=== PATIENT | male | born 1970 | race Caucasian/White ===

== ENCOUNTER 2019-10-09 17:55 | Emergency (ER) | payer MEDICARE ==
[2019-10-09 18:10] VITALS: BP 115/75
--- NOTE | 2019-10-09 18:18 | UC ---
Respiratory Complaint HPI - HPI Summary HPI Summary: 49 yo male with cough > 1 week no fever/chills no n/v/d no sinus pain or pressure no sore throat - History of Current Complaint Chief Complaint: UCRespiratory Stated Complaint: COUGH/CONGESTION Time Seen by Provider: 10/09/19 18:03 Hx Obtained From: Patient Onset/Duration: Gradual Onset, Lasting Days Timing: Constant Severity Initially: Mild Severity Currently: Moderate Pain Intensity: 0 Pain Scale Used: 0-10 Numeric Character: Cough: Productive Aggravating Factors: Nothing Alleviating Factors: Nothing Associated Signs And Symptoms: Positive: Dyspnea - Allergies/Home Medications Allergies/Adverse Reactions: Allergies Allergy/AdvReac Type Severity Reaction Status Date / Time oxycodone Allergy See Comment Verified 10/09/19 18:05 Penicillins Allergy Rash Verified 10/09/19 18:05 Home Medications: Home Medications Blood Pressure Med 1 tab BID 10/09/19 [History Confirmed 10/09/19] Venlafaxine EXT RELEASE CAP* [Effexor Xr CAP*] 75 mg DAILY 10/09/19 [History Confirmed 10/09/19] traZODone TAB* [Desyrel TAB*] 50 mg PO BEDTIME 10/09/19 [History Confirmed 10/09] PMH/Surg Hx/FS Hx/Imm Hx Previously Healthy: Yes Respiratory History: Bronchitis Psychological History: Post Traumatic Stress Disorder Other History Of: Negative For: HIV, Hepatitis B, Hepatitis C, Anticoagulant Therapy - Surgical History Surgical History: Yes Surgery Procedure, Year, and Place: left inguinal hernia. right shoulder. right heel repair - Family History Known Family History: Positive: Hypertension - Social History Alcohol Use: None Substance Use Type: None Smoking Status (MU): Never Smoked Tobacco - Immunization History Most Recent Influenza Vaccination: Fall 2014 Review of Systems All Other Systems Reviewed And Are Negative: Yes Constitutional: Positive: Negative Skin: Positive: Negative Eyes: Positive: Negative ENT: Positive: Negative Respiratory: Positive: Cough Cardiovascular: Positive: Negative Gastrointestinal: Positive: Negative Genitourinary: Positive: Negative Neurovascular: Positive: Negative Musculoskeletal: Positive: Myalgia Neurological: Positive: Negative Psychological: Positive: Negative Physical Exam Triage Information Reviewed: Yes Appearance: Well-Appearing, No Pain Distress, Well-Nourished Vital Signs: Initial Vital Signs Temp 99.2 F 10/09/19 18:07 Pulse 76 10/09/19 18:07 Resp 18 10/09/19 18:07 BP 115/75 10/09/19 18:07 Pulse Ox 97 10/09/19 18:07 Vital Signs Reviewed: Yes Eye Exam: Normal Eyes: Positive: Conjunctiva Clear ENT: Positive: Normal ENT inspection Dental: Negative: Abscess @ Neck: Positive: Supple, Nontender, No Lymphadenopathy Respiratory: Positive: Lungs clear, Normal breath sounds, No respiratory distress, No accessory muscle use Cardiovascular: Positive: RRR, No Murmur Musculoskeletal: Positive: ROM Intact, No Edema Neurological: Positive: Alert Psychological Exam: Normal Psychological: Positive: Decreased Age Appropriate Behavior Diagnostics - Radiology No standard instances Radiology Interpretation Completed By: ED Physician Summary of Radiographic Findings: no infiltrate /stigmata of COPD Respiratory Course/Dx - Differential Dx/Diagnosis Provider Diagnosis: COPD exacerbation Discharge ED - Sign-Out/Discharge Documenting (check all that apply): Patient Departure All imaging exams completed and their final reports reviewed: No - Discharge Plan Condition: Stable Disposition: HOME Prescriptions: predniSONE TAB* [Deltasone 20 MG TAB*] 40 mg PO DAILY #8 tab Patient Education Materials: COPD (Chronic Obstructive Pulmonary Disease) (ED) Referrals: [facility] [place] [facility] [place]] Additional Instructions: based on your Chest XR you may have COPD (despite being a non smoker) the next time you are seen at the [facility] I would ask about getting PULMONARY FUNCTION TESTS recheck here in 4-5 days if not better recheck sooner for fever or worsening symptoms - Billing Disposition and Condition Condition: STABLE Disposition: Home
[2019-10-09] MEDS ORDERED: predniSONE TAB* 20 MG PO ONE (18:42)
[2019-10-09] MEDS ORDERED: Albuterol HFA INHALER* 8 gm MDI INH ONE (18:42)
--- NOTE | 2019-10-10 17:15 | UC ---
- Progress Note Progress Note: Final radiologist reading of chest x-ray from October 09, 2019 comes back as no acute disease process. Provider interpretation same date is no infiltrate therefore there is no discrepancy. Course/Dx - Diagnoses Provider Diagnoses: COPD exacerbation Discharge ED - Sign-Out/Discharge Documenting (check all that apply): Patient Departure All imaging exams completed and their final reports reviewed: Yes - Discharge Plan Condition: Stable Disposition: HOME Prescriptions: predniSONE TAB* [Deltasone 20 MG TAB*] 40 mg PO DAILY #8 tab Patient Education Materials: COPD (Chronic Obstructive Pulmonary Disease) (ED) Referrals: [facility] [place] [facility] [Outside] Additional Instructions: based on your Chest XR you may have COPD (despite being a non smoker) [facility] I would ask about getting PULMONARY FUNCTION TESTS recheck here in 4-5 days if not better recheck sooner for fever or worsening symptoms - Billing Disposition and Condition Condition: STABLE Disposition: Home
== END 2019-10-09 19:02 | disposition home or self-care (01) ==
LOC: UCCORT 17:55
DX: J44.1 Chronic obstructive pulmonary disease with (acute) exacerbation (principal); M79.10 Myalgia, unspecified site; Z88.0 Allergy status to penicillin; Z88.5 Allergy status to narcotic agent
CPT/HCPCS: 71046; 99202; A9270-GY; G0463; J7512

== ENCOUNTER 2019-10-13 11:53 | Emergency (ER) | payer MEDICARE ==
[2019-10-13 13:32] VITALS: BP 140/90
--- NOTE | 2019-10-13 13:56 | UC ---
Respiratory Complaint HPI - HPI Summary HPI Summary: 49 yo male with the onset of cough 2 weeks ago some relief with MDI and prednisone now cough is more productive no fever/chils no vomiting or diarrhea no CP or sob tick bite three weeks ago engorged - History of Current Complaint Chief Complaint: UCGeneralIllness Stated Complaint: CHEST CONGESTION HEADACHE EYES RECHECK Time Seen by Provider: 10/13/19 12:49 Hx Obtained From: Patient Onset/Duration: Gradual Onset Timing: Constant Severity Initially: Mild Severity Currently: Moderate Pain Intensity: 0 Pain Scale Used: 0-10 Numeric Character: Cough: Productive Aggravating Factors: Exertion, Deep Breaths Alleviating Factors: Nothing Associated Signs And Symptoms: Positive: Wheezing. Negative: Dyspnea, Fever, Chills, Pleuritic Chest Pain, Hemoptysis, Dizziness, Calf Pain, Calf Swelling, Edema, URI, Nasal Congestion - Allergies/Home Medications Allergies/Adverse Reactions: Allergies Allergy/AdvReac Type Severity Reaction Status Date / Time Penicillins Allergy Rash Verified 10/13/19 12:19 oxycodone AdvReac See Comment Verified 10/13/19 12:19 Home Medications: Home Medications Albuterol HFA INHALER* [Ventolin HFA Inhaler*] 1 - 2 puff INH Q4H PRN 10/13/19 [ History Confirmed 10/13/19] PMH/Surg Hx/FS Hx/Imm Hx Previously Healthy: Yes Cardiovascular History: Hypertension Other History Of: Negative For: HIV, Hepatitis B, Hepatitis C, Anticoagulant Therapy - Surgical History Surgical History: Yes Surgery Procedure, Year, and Place: left inguinal hernia. right shoulder. right heel repair - Family History Known Family History: Positive: Hypertension - Social History Alcohol Use: None Substance Use Type: None Smoking Status (MU): Never Smoked Tobacco - Immunization History Most Recent Influenza Vaccination: Fall 2014 Review of Systems All Other Systems Reviewed And Are Negative: Yes Constitutional: Positive: Fatigue Skin: Positive: Negative Eyes: Positive: Negative ENT: Positive: Nasal Discharge, Sinus Congestion, Sinus Pain/Tenderness Respiratory: Positive: Cough Cardiovascular: Positive: Negative Gastrointestinal: Positive: Negative Genitourinary: Positive: Negative Motor: Positive: Negative Neurovascular: Positive: Negative Musculoskeletal: Positive: Negative Neurological: Positive: Negative Psychological: Positive: Negative Physical Exam Triage Information Reviewed: Yes Appearance: Well-Appearing, No Pain Distress, Well-Nourished Vital Signs: Initial Vital Signs Temp 97.8 F 10/13/19 12:16 Pulse 58 10/13/19 12:16 Resp 16 10/13/19 12:16 BP 124/85 10/13/19 12:16 Pulse Ox 100 10/13/19 12:16 Vital Signs Reviewed: Yes Eyes: Positive: Conjunctiva Clear ENT: Positive: Hearing grossly normal. Negative: Nasal congestion, Nasal drainage, Trismus, Muffled voice, Hoarse voice Neck: Positive: Supple, Nontender, No Lymphadenopathy Respiratory: Positive: Normal breath sounds, No respiratory distress, Wheezing Cardiovascular: Positive: RRR, No Murmur Abdominal Exam: Normal Bowel Sounds: Positive: Present Musculoskeletal: Positive: ROM Intact, No Edema Neurological: Positive: Alert Psychological Exam: Normal Skin Exam: Normal Respiratory Course/Dx - Differential Dx/Diagnosis Provider Diagnosis: Bronchitis Discharge ED - Sign-Out/Discharge Documenting (check all that apply): Patient Departure All imaging exams completed and their final reports reviewed: No Studies - Discharge Plan Condition: Stable Disposition: HOME Prescriptions: DOXYcycline CAP(*) [DOXYcycline 100MG CAP(*)] 100 mg PO BID #20 cap Patient Education Materials: Acute Bronchitis (ED) Referrals: No Primary Care Phys,NOPCP [Primary Care Provider] - Additional Instructions: use inhaler recheck for new or worsening symptoms blood work pending [facility] next week if not better - Billing Disposition and Condition Condition: STABLE Disposition: Home
[2019-10-13 19:39] LABS: ABS Lymphocytes 1.3 10^3/ul (1.0-4.8); ABS Monocytes 0.4 10^3/ul (0-0.8); ABS Neutrophils 9.7 10^3/ul (1.5-7.7); Eosinophil % 0.1 %; Hematocrit 44 % (42-52); Hemoglobin 14.6 g/dL (14.0-18.0); Lymphocyte % 11.5 %; Mean Corpuscular HGB Conc 33 g/dL (31-36); Mean Corpuscular Hemoglobin 28 pg (27-31); Mean Corpuscular Volume 87 fL (80-94); Nucleated Red Blood Cells % 0.1; Platelet Count 350 10^3/uL (150-450); Red Blood Count 5.12 10^6 /uL (4.18-5.48); Red Cell Distribution Width 14 % (10-15); White Blood Count 11.5 10^3/uL (3.5-10.8)
== END 2019-10-13 14:12 | disposition home or self-care (01) ==
LOC: UCCORT 11:53
DX: J40 Bronchitis, not specified as acute or chronic (principal); I10 Essential (primary) hypertension; Z88.0 Allergy status to penicillin; Z88.5 Allergy status to narcotic agent; Z88.8 Allergy status to other drugs, medicaments and biological substances
CPT/HCPCS: 36415; 81003; 85025; 86618; 99212; G0463

== ENCOUNTER 2020-01-05 18:48 | Emergency (ER) | payer MEDICARE ==
[2020-01-05 20:06] VITALS: BP 116/92
[2020-01-05 20:17] LABS: Influenza A Molecular POSITIVE (Negative)
--- NOTE | 2020-01-05 20:39 | UC ---
FLU HPI - HPI Summary HPI Summary: 49 y/o male presents to the urgent care c/o body aches, chills, runny nose w/ clear nasal discharge, hot and chills for the past 2 days. Mild sore throat. Pain is 3/10 and he has taken Ibuprofen [id number] this morning around 080o to alleviate symptoms. Pt denies dizziness, wheezing, SOB, chest pain, abdominal pain, N/V/ d. - History of Current Complaint Chief Complaint: UCRespiratory Stated Complaint: FLU LIKE ILLNESS Time Seen by Provider: 01/05/20 20:19 Hx Obtained From: Patient Onset/Duration: Gradual Onset, Lasting Days - 2 days Severity Currently: Mild Severity Initially: Moderate Pain Intensity: 3 Pain Scale Used: 0-10 Numeric Associated Signs & Symptoms: Positive: Fever, Myalgia, Cough, Sore Throat, Nasal Congestion - clear, Headache. Negative: Vomiting, Diarrhea Related Hx: Possible Flu/Infectious Exposure - Risk Factors Influenza Risk Factors: Negative - Allergy/Home Medications Allergies/Adverse Reactions: Allergies Allergy/AdvReac Type Severity Reaction Status Date / Time Penicillins Allergy Rash Verified 01/05/20 20:02 oxycodone AdvReac See Comment Verified 01/05/20 20:02 PMH/Surg Hx/FS Hx/Imm Hx Previously Healthy: Yes Cardiovascular History: Hypertension Other History Of: Negative For: HIV, Hepatitis B, Hepatitis C, Anticoagulant Therapy - Surgical History Surgical History: Yes Surgery Procedure, Year, and Place: left inguinal hernia. right shoulder. right heel repair - Family History Known Family History: Positive: Hypertension - Social History Occupation: Employed Full-time Lives: With Family Alcohol Use: None Substance Use Type: None Smoking Status (MU): Never Smoked Tobacco - Immunization History Most Recent Influenza Vaccination: Fall 2014 Review of Systems All Other Systems Reviewed And Are Negative: Yes Constitutional: Positive: Fever, Chills, Fatigue, Other - body aches Skin: Positive: Negative Eyes: Positive: Negative ENT: Positive: Sore Throat, Nasal Discharge - clear, Sinus Congestion Respiratory: Positive: Cough - dry Cardiovascular: Positive: Negative Gastrointestinal: Positive: Negative Genitourinary: Positive: Negative Motor: Positive: Negative Neurovascular: Positive: Negative Musculoskeletal: Positive: Myalgia Neurological: Positive: Headache Psychological: Positive: Negative Physical Exam - Summary Physical Exam Summary: VITAL SIGNS: Reviewed. GENERAL: Patient is a well developed and nourished male who is sitting comfortably in the examining table. Patient is not in any acute respiratory distress. HEAD AND FACE: No signs of trauma. No ecchymosis, hematomas or skull depressions. No sinus tenderness. EYES: PERRLA, EOMI x 2, No injected conjunctiva, no nystagmus. No photophobia. EARS: Hearing grossly intact. Ear canals and tympanic membranes are within normal limits. MOUTH: Positive pharynx with mild erythema, no exudates, No B/L tonsillar enlargement , no exudate. Uvula in midline. edematous nasal mucosa w/ clear nasal discharge, clear PND NECK: Supple, trachea is midline, Positive anterior cervical lymphadenopathy, no JVD, no carotid bruit, no c-spine tenderness, neck with full ROM. No meningeal signs, no Kernig's or brudzinskis signs. CHEST: Symmetric, no tenderness at palpation LUNGS: Clear to auscultation bilaterally. No wheezing or crackles. CVS: Regular rate and rhythm, S1 and S2 present, no murmurs or gallops appreciated. ABDOMEN: Soft, non-tender. No signs of distention. No rebound no guarding, and no masses palpated. Bowel sounds are normal. EXTREMITIES: FROM in all major joints, no edema, no cyanosis or clubbing. NEURO: Alert and oriented x 3. No acute neurological deficits. Pt follows commands. SKIN: Dry and warm Triage Information Reviewed: Yes Vital Signs: Initial Vital Signs Temp 97.2 F 01/05/20 20:03 Pulse 92 01/05/20 20:03 Resp 16 01/05/20 20:03 BP 116/92 01/05/20 20:03 Pulse Ox 99 01/05/20 20:03 Flu Course/Dx - Course Course Of Treatment: 49 y/o male presents to the urgent care c/o body aches, chills, runny nose w/ clear nasal discharge, hot and chills for the past 2 days. Mild sore throat. Pain is 3/10 and he has taken Ibuprofen [id number] this morning around 0800 to alleviate symptoms. Pt denies dizziness, wheezing, SOB, chest pain, abdominal pain, N/V/d. Hx obtained. Pt with URI on examination. Rapid Influenza A&B ordered: result: Influenza B positive.Pt Rx Tamiflu PO and advised to continue taking ibuprofen PO to alleviate symptoms. Advised on hand washing and wearing a mask to avoid spreading. Pt advised to rest, increase fluid intake, eat well and avoid strenuous exercise. Pt's BP is elevated today advised to decrease salt in diet, monitor BP and f/u with PCP for further management.If symptoms do not improve or worsen advised to return to the urgent care or f/u with her PCP for further evaluation and treatment. Pt understood and agreed - Differential Dx/Diagnosis Differential Diagnosis/HQI/PQRI: Bronchitis, Influenza, Pneumonia, Upper Respiratory Infection Provider Diagnosis: Influenza A, Uncontrolled hypertension Discharge ED - Sign-Out/Discharge Documenting (check all that apply): Patient Departure - D/C home All imaging exams completed and their final reports reviewed: No Studies - Discharge Plan Condition: Stable Disposition: HOME Prescriptions: Oseltamivir CAP* [Tamiflu CAP*] 75 mg PO BID #10 cap Patient Education Materials: Influenza (ED) Referrals: [facility] [place] [facility] [place]] - 3 Days Additional Instructions: 1- Please take the full course of the antiviral to avoid resistance. Encourage hand washing and wear a mask to avoid spreading. 2-Please continue taking Tylenol or Ibuprofen PO q6-8hrs prn as instructed after meals to alleviate fever, and sore throat. Increase fluid intake, eat well, rest and avoid strenuous exercise 3-If symptoms do not improve or worsen please return to the urgent care or f/u with your PCP in 2-3 days for further evaluation and treatment. 4-Your BP is elevated today advised to decrease salt in diet, monitor BP and f/ u with PCP for further management. - Billing Disposition and Condition Condition: STABLE Disposition: Home
== END 2020-01-05 20:51 | disposition home or self-care (01) ==
LOC: UCCORT 18:48
DX: J10.1 Influenza due to other identified influenza virus with other respiratory manifestations (principal); I10 Essential (primary) hypertension; Z88.0 Allergy status to penicillin; Z88.5 Allergy status to narcotic agent
CPT/HCPCS: 99212; G0463

== ENCOUNTER 2020-01-12 16:21 | Emergency (ER) | payer MEDICARE ==
[2020-01-12 17:06] VITALS: BP 135/94
--- NOTE | 2020-01-12 17:28 | UC ---
Respiratory Complaint HPI - HPI Summary HPI Summary: 49-year-old male comes in with a chief complaint of upper respiratory tract infection symptoms. Patient diagnosed with the flu about a week ago started on Tamiflu but had to stop because of GI upset. Patient does have a history of COPD and he's continuing to have sinus congestion postnasal drip cough chest congestion and shortness of breath. Rhinorrhea and sputum are yellow and green. Patient reports he does not have an inhaler at home. Patient also reports that 2 days ago he started with burning with urination. He reports yesterday he urinated a thin strength of blood approximately 1.5 cm long. He reports he had left testicular pain for several minutes after that happened. Now he reports he has mild testicular discomfort. Denies any testicular swelling. Denies any concern of STI. - History of Current Complaint Chief Complaint: UCGeneralIllness Stated Complaint: CHEST CONGESTION, COUGH, UTI SX Time Seen by Provider: 01/12/20 16:59 Pain Intensity: 3 - Allergies/Home Medications Allergies/Adverse Reactions: Allergies Allergy/AdvReac Type Severity Reaction Status Date / Time Penicillins Allergy Rash Verified 01/12/20 16:54 oxycodone AdvReac See Comment Verified 01/12/20 16:54 Home Medications: Home Medications Ibuprofen TAB* [Advil TAB*] 200 mg PO Q6H PRN 01/12/20 [History Confirmed ] PMH/Surg Hx/FS Hx/Imm Hx Previously Healthy: Yes Respiratory History: COPD Other History Of: Negative For: HIV, Hepatitis B, Hepatitis C, Anticoagulant Therapy - Surgical History Surgical History: Yes Surgery Procedure, Year, and Place: left inguinal hernia. right shoulder. right heel repair - Family History Known Family History: Positive: None, Hypertension - Social History Alcohol Use: None Substance Use Type: None Smoking Status (MU): Never Smoked Tobacco - Immunization History Most Recent Influenza Vaccination: Fall 2014 Review of Systems All Other Systems Reviewed And Are Negative: Yes Constitutional: Positive: Other - SEE HPI Skin: Positive: Negative Eyes: Positive: Negative ENT: Positive: Sore Throat, Nasal Discharge, Sinus Congestion, Sinus Pain/ Tenderness Respiratory: Positive: Shortness Of Breath, Cough, Other - SEE HPI Cardiovascular: Positive: Negative Gastrointestinal: Positive: Negative Genitourinary: Positive: Other - SEE HPI Motor: Positive: Negative Neurovascular: Positive: Negative Musculoskeletal: Positive: Negative Neurological/Mental Status: Positive: Negative Psychological: Positive: Negative Is Patient Immunocompromised?: No Physical Exam Triage Information Reviewed: Yes Appearance: No Pain Distress, Well-Nourished, Ill-Appearing - MILD Vital Signs: Initial Vital Signs Temp 98.5 F 01/12/20 16:56 Pulse 70 01/12/20 16:56 Resp 18 01/12/20 16:56 BP 135/94 01/12/20 16:56 Pulse Ox 97 01/12/20 16:56 Vital Signs Reviewed: Yes Eye Exam: Normal Eyes: Positive: Conjunctiva Clear ENT: Positive: Pharyngeal erythema, Nasal congestion, Nasal drainage, TMs normal Neck: Positive: Supple Respiratory: Positive: No respiratory distress, Rhonchi Cardiovascular: Positive: RRR Male Genital Exam: Positive: Other - No penile lesions or genital lesions. Testicles are of equal size and shape. Ranger is normal for both testicles. Patient reports mild tenderness to palpation of the left testicle. Musculoskeletal: Positive: Strength Intact, ROM Intact Neurological: Positive: Alert, Muscle Tone Normal Psychological: Positive: Age Appropriate Behavior Skin Exam: Normal Respiratory Course/Dx - Course Course Of Treatment: I discussed the results of the urinalysis with the patient. No blood seen in the urine no signs of infection. On exam and by history no evidence of testicular torsion at this time. We discussed going to the emergency Department to get a testicular ultrasound and the patient declined going to the emergency department at this time. [facility] To [facility] them tomorrow to arrange follow-up. I also recommended following up with urology. I also discussed that if the testicular pain got worse worse testicle got bigger or if he changes his mind he should go to the emergency Department to get further evaluation. For the bronchitis and COPD going to treat with doxycycline prednisone and albuterol. [facility]. He was emergency department if worse or not improving. - Differential Dx/Diagnosis Provider Diagnosis: Bronchitis, COPD (chronic obstructive pulmonary disease), Sinusitis, Hematuria , Dysuria, Testicular pain, left Discharge ED - Sign-Out/Discharge Documenting (check all that apply): Patient Departure All imaging exams completed and their final reports reviewed: No Studies - Discharge Plan Condition: Stable Disposition: HOME Prescriptions: Albuterol HFA INHALER* [Ventolin HFA Inhaler*] 2 puff INH Q4H PRN #1 mdi PRN Reason: Wheezing DOXYcycline CAP(*) [DOXYcycline 100MG CAP(*)] 100 mg PO BID #20 cap predniSONE 20 mg TAB [Deltasone 20 MG TAB*] 40 mg PO DAILY #10 tab Patient Education Materials: Sinusitis (ED), Acute Bronchitis (ED), COPD ( Chronic Obstructive Pulmonary Disease) (ED), Hematuria (ED), Testicle Pain (ED) , Dysuria (ED) Referrals: Sandip Serra MD [Primary Care Provider] - Jimmie Potts MD [Medical Doctor] - Yosef Fowler MD [Medical Doctor] - Additional Instructions: [facility] WITH [facility]. CALL TOMORROW TO ARRANGE FOLLOW UP. GO TO THE EMERGENCY DEPARTMENT IF NOT IMPROVED OR WORSE; TESTICLE PAIN OR SWELLING, FEVER, YOU FEEL ILL, SHORTNESS OF BREATH OR ANY QUESTIONS OR CONCERNS. - Billing Disposition and Condition Condition: STABLE Disposition: Home
--- NOTE | 2020-01-16 07:13 | UC ---
- Progress Note Progress Note: Urine culture from January 12, 2020 comes back with enterococcus faecalis. Patient was started on doxycycline. Susceptibilities are showing resistance to tetracycline. Patient is penicillin allergic. Patient was going to be following up with the [facility] is his primary care physician and/or urology. Nursing to call patient and find out if he has improved or not or whether or not he is followed up with his primary care physician or urology. If the urinary symptoms have not improved we will start nitrofurantoin. Course/Dx - Diagnoses Provider Diagnoses: Bronchitis, COPD (chronic obstructive pulmonary disease), Sinusitis, Hematuria , Dysuria, Testicular pain, left Discharge ED - Sign-Out/Discharge Documenting (check all that apply): Patient Departure All imaging exams completed and their final reports reviewed: No Studies - Discharge Plan Condition: Stable Disposition: HOME Prescriptions: Albuterol HFA INHALER* [Ventolin HFA Inhaler*] 2 puff INH Q4H PRN #1 mdi PRN Reason: Wheezing DOXYcycline CAP(*) [DOXYcycline 100MG CAP(*)] 100 mg PO BID #20 cap predniSONE 20 mg TAB [Deltasone 20 MG TAB*] 40 mg PO DAILY #10 tab Patient Education Materials: Sinusitis (ED), Acute Bronchitis (ED), COPD ( Chronic Obstructive Pulmonary Disease) (ED), Hematuria (ED), Testicle Pain (ED) , Dysuria (ED) Referrals: Sandip Serra MD [Primary Care Provider] - Jimmie Potts MD [Medical Doctor] - Yosef Fowler MD [Medical Doctor] - Additional Instructions: [facility] WITH [facility]. CALL TOMORROW TO ARRANGE FOLLOW UP. GO TO THE EMERGENCY DEPARTMENT IF NOT IMPROVED OR WORSE; TESTICLE PAIN OR SWELLING, FEVER, YOU FEEL ILL, SHORTNESS OF BREATH OR ANY QUESTIONS OR CONCERNS. - Billing Disposition and Condition Condition: STABLE Disposition: Home
== END 2020-01-12 17:57 | disposition home or self-care (01) ==
LOC: UCCORT 16:21
DX: J44.9 Chronic obstructive pulmonary disease, unspecified (principal); J32.9 Chronic sinusitis, unspecified; R31.9 Hematuria, unspecified; R30.0 Dysuria; N50.812 Left testicular pain; Z88.0 Allergy status to penicillin; Z88.5 Allergy status to narcotic agent
CPT/HCPCS: 81003; 87077; 87086; 87186; 99212; G0463

== ENCOUNTER 2020-02-13 11:44 | Emergency (ER) | payer MEDICARE ==
[2020-02-13 13:42] VITALS: BP 116/78
[2020-02-13] MEDS ORDERED: Sulfamethox/Trimethoprim DS 800/160* TAB PO ONE (14:48)
--- NOTE | 2020-02-13 14:55 | UC ---
Abdominal Pain Male HPI - HPI Summary HPI Summary: 50 year old male with no PMH for DM, + for proctatitis presents with b/l lower back pain, suprapubic pain, chills, painful urination, and nida blood in his urine x 3 days. blood has resolved. has h/o prostatitis, unsure when dx'd, unsure of treatment. Recent travel to [place] with a lot of sitting. - History of Current Complaint Chief Complaint: [facility] Stated Complaint: BLOOD IN URINE Time Seen by Provider: 02/13/20 13:36 Hx Obtained From: Patient Onset/Duration: Sudden Onset Severity Initially: Mild Severity Currently: Mild Pain Intensity: 3 Pain Scale Used: 0-10 Numeric Location: Suprapubic Radiates: Yes Radiates to: Back Alleviating Factor(s): Rest - Allergies/Home Medications Allergies/Adverse Reactions: Allergies Allergy/AdvReac Type Severity Reaction Status Date / Time Penicillins Allergy Rash Verified 02/13/20 13:34 oxycodone AdvReac See Comment Verified 02/13/20 13:34 Home Medications: Home Medications Blood Pressure Med 1 tab PO BID 10/09/19 [History Confirmed 02/13/20] Venlafaxine EXT RELEASE CAP* [Effexor Xr CAP*] 75 mg PO BID 10/09/19 [History Confirmed 02/13/20] traZODone TAB* [Desyrel TAB*] 50 mg PO BEDTIME 10/09/19 [History Confirmed 02/12] Albuterol HFA INHALER* [Ventolin HFA Inhaler*] 2 puff INH Q4H PRN #1 mdi [Rx Confirmed 02/13/20] cloNIDine TAB* [Catapres 0.1 MG TAB*] 0.1 mg PO DAILY 02/13/20 [History Confirmed 02/13/20] PMH/Surg Hx/FS Hx/Imm Hx Previously Healthy: Yes Other History Of: Negative For: HIV, Hepatitis B, Hepatitis C, Anticoagulant Therapy - Surgical History Surgical History: Yes Surgery Procedure, Year, and Place: left inguinal hernia. right shoulder. right heel repair - Family History Known Family History: Positive: None, Hypertension - Social History Alcohol Use: None Substance Use Type: None Smoking Status (MU): Never Smoked Tobacco - Immunization History Most Recent Influenza Vaccination: Fall 2014 Review of Systems All Other Systems Reviewed And Are Negative: Yes Constitutional: Positive: Chills, Fatigue. Negative: Fever ENT: Positive: Negative Genitourinary: Positive: Hematuria, Urgency, Vaginal/Penile Burning. Negative: Vaginal/Penile Discharge, Vaginal/Penile Pain Motor: Positive: Negative Neurovascular: Positive: Negative Musculoskeletal: Positive: Negative Neurological/Mental Status: Positive: Negative Psychological: Positive: Negative Is Patient Immunocompromised?: No Physical Exam Triage Information Reviewed: Yes Appearance: Well-Appearing, No Pain Distress, Well-Nourished Vital Signs: Initial Vital Signs Temp 98.4 F 02/13/20 13:37 Pulse 82 02/13/20 13:37 Resp 15 02/13/20 13:37 BP 116/78 02/13/20 13:37 Pulse Ox 100 02/13/20 13:37 Vital Signs Reviewed: Yes Eyes: Positive: Conjunctiva Clear Respiratory: Positive: Chest non-tender, Lungs clear, Normal breath sounds, No respiratory distress, No accessory muscle use. Negative: Respiratory distress, Decreased breath sounds, Crackles, Rhonchi, Stridor, Wheezing, Expiration Abdomen Description: Positive: No Organomegaly, Soft, Bruit, Other: - + TTP over suprapubic area. Negative: CVA Tenderness (R), CVA Tenderness (L), Distended, Guarding, Hepatomegaly, Splenomegaly Musculoskeletal Exam: Normal Psychological Exam: Normal Abd Pain Male Course/Dx - Course Course Of Treatment: Abdominal Pain, Hematuria - Follow up with Primary physician tomorrow for further treatment - Give results to physician. Cultures sent on urine - Bactrim DS one tablet given at urgent care - Increase fluid intake to flush out system - Go to ER with increased pain, no urine output, fever, chills. - Tylenol as needed for pain Patient has an appointment at the [facility] tomorrow at 8am. DOes not want any medications bc can get them at the CT for free. Patient was given results of report and Urine dip to give to his PCP for further work up/ testing. - Differential Dx/Clinical Impression Provider Diagnosis: Hematuria Discharge ED - Sign-Out/Discharge Documenting (check all that apply): Patient Departure All imaging exams completed and their final reports reviewed: Yes - Discharge Plan Condition: Good Disposition: HOME Patient Education Materials: Hematuria (ED) Referrals: No Primary Care Phys,NOPCP [Primary Care Provider] - Additional Instructions: - Follow up with Primary physician tomorrow for further treatment - Give results to physician. Cultures sent on urine - Bactrim DS one tablet given at urgent care - Increase fluid intake to flush out system - Go to ER with increased pain, no urine output, fever, chills. - Tylenol as needed for pain - Billing Disposition and Condition Condition: GOOD Disposition: Home
--- NOTE | 2020-02-13 16:50 | UC ---
- Progress Note Progress Note: [facility] unable [facility] for the Bactrim DS. He received 1 dose here prior to discharge. He requested a prescription for the Bactrim to be filled locally. I sent a prescription for Bactrim DS one tab by mouth twice a day 10 days. Course/Dx - Diagnoses Provider Diagnoses: Hematuria Discharge ED - Sign-Out/Discharge Documenting (check all that apply): Post-Discharge Follow Up All imaging exams completed and their final reports reviewed: Yes - Discharge Plan Condition: Good Disposition: HOME Prescriptions: Sulfamethox/Trimethoprim DS* [Bactrim DS 800/160 TAB*] 1 tab PO BID 10 Days #19 tab Patient Education Materials: Hematuria (ED) Referrals: No Primary Care Phys,NOPCP [Primary Care Provider] - Additional Instructions: - Follow up with Primary physician tomorrow for further treatment - Give results to physician. Cultures sent on urine - Bactrim DS one tablet given at urgent care - Increase fluid intake to flush out system - Go to ER with increased pain, no urine output, fever, chills. - Tylenol as needed for pain - Billing Disposition and Condition Condition: GOOD Disposition: Home
--- NOTE | 2020-02-16 07:46 | UC ---
- Progress Note Progress Note: Urine culture from February 13, 2020 comes back with enterococcus faecalis. Patient was started on Bactrim DS by mouth twice a day. There is no sensitivity listed for Bactrim on the urine culture. Nursing to call patient and find out if the patient has improved with these improved make sure he is followed up his primary care doctor if is not improved we'll need to call in a different antibiotic. Course/Dx - Diagnoses Provider Diagnoses: Hematuria Discharge ED - Sign-Out/Discharge Documenting (check all that apply): Patient Departure All imaging exams completed and their final reports reviewed: Yes - Discharge Plan Condition: Good Disposition: HOME Prescriptions: Sulfamethox/Trimethoprim DS* [Bactrim DS 800/160 TAB*] 1 tab PO BID 10 Days #19 tab Patient Education Materials: Hematuria (ED) Referrals: No Primary Care Phys,NOPCP [Primary Care Provider] - Additional Instructions: - Follow up with Primary physician tomorrow for further treatment - Give results to physician. Cultures sent on urine - Bactrim DS one tablet given at urgent care - Increase fluid intake to flush out system - Go to ER with increased pain, no urine output, fever, chills. - Tylenol as needed for pain - Billing Disposition and Condition Condition: GOOD Disposition: Home
== END 2020-02-13 14:54 | disposition home or self-care (01) ==
LOC: UCCORT 11:44
DX: R31.9 Hematuria, unspecified (principal); M54.5 Low back pain; R10.9 Unspecified abdominal pain; R39.15 Urgency of urination; R53.83 Other fatigue; Z88.0 Allergy status to penicillin; Z88.5 Allergy status to narcotic agent
CPT/HCPCS: 76775; 81003; 87077; 87086; 87186; 99212; A9270-GY; G0463